=== PATIENT | female | born 1990 | race Caucasian/White ===

== ENCOUNTER 2019-08-23 17:50 | Emergency (ER) | payer OTHER ==
[~2019-08-23] VITALS: Ht 152.4 cm; Wt 73.9 kg
[2019-08-23 18:04] VITALS: BP_SYST 132
--- NOTE | 2019-08-23 18:20 | NUR ---
Patient to ER bed 07 to gown for evaluation. Side rails up.
--- NOTE | 2019-08-23 18:22 | NUR ---
Pt brought by self, A&Ox4, pt presents to ER with vaginal pain and discomfort and yellow discharge, denies bleeding , afebrile , skin pink and warm, cap refill <3.
--- NOTE | 2019-08-23 18:25 | NUR ---
Esther Proctor NP at bedside examining patient
--- NOTE | 2019-08-23 18:30 | NUR ---
Pelvic exam performed by Esther Proctor NP with myself at bedside for entire examination. Patient tolerated procedure . Patient assisted to position of comfort after examination.
[2019-08-23] MEDS ORDERED: cefTRIAXone 1 GM in LIDOCAINE 1%, 20 ML MDV 2.1 ML IM ONE (18:45)
[2019-08-23] MEDS ORDERED: AZITHROMYCIN 250 MG TABLET PO ONE (18:45)
[2019-08-23 18:55] LABS: BILIRUBIN,URINE NEGATIVE (NEGATIVE); CLARITY/URINE SL CLOUDY (CLEAR); COLOR,URINE YELLOW (YELLOW); GLUCOSE,URINE NEGATIVE (NEGATIVE); KETONES,URINE NEGATIVE (NEGATIVE); LEUKOCYTE ESTERASE ,URINE 2+ (NEGATIVE); NITRITE, URINE NEGATIVE (NEGATIVE); PROTEIN URINE NEGATIVE (NEGATIVE); UROBILINOGEN,URINE 0.2 (0.2-1.0)
[2019-08-23 19:12] LABS: BLOOD, URINE TRACE (NEGATIVE)
[2019-08-23 19:14] LABS: BACTERIA,URINE FEW /HPF (None Seen); WBC,URINE 50-80 /HPF (0-3)
[2019-08-23 19:15] LABS: MUCUS,URINE 1+ /LPF (None Seen)
--- NOTE | 2019-08-23 19:22 | NUR ---
Pt on stable condition, denies bleeding, VSS
[2019-08-23 20:30] VITALS: BP_SYST 124
--- NOTE | 2019-08-23 20:30 | NUR ---
Patient given written and verbal discharge instructions and verbalizes understanding. ER MD discussed with patient the results and treatment provided. Patient in stable condition. ID arm band removed. Rx of Doxycycline Hyclate given. Patient educated on pain management and to follow up with PMD. Pain Scale 0. Opportunity for questions provided and answered. Medication side effect fact sheet provided.
== END 2019-08-23 20:30 | disposition home or self-care (01) ==
LOC: SED 17:50
DX: N39.0 Urinary tract infection, site not specified (principal); R03.0 Elevated blood-pressure reading, without diagnosis of hypertension; Z11.3 Encounter for screening for infections with a predominantly sexual mode of transmission
CPT/HCPCS: 36415; 81000; 86592; 87086; 87210; 87491; 87591; 96372; 99283; J0696; J2001; Q0144